=== PATIENT | female | born 1955 | race African-American/Black ===

== ENCOUNTER 2024-09-22 13:39 | Emergency (ER) | payer OTHER ==
[2024-09-22 13:47] VITALS: BP 130/84; PULSE 85; RESP 18; TEMP 98.1; BMI 25.8
[2024-09-22] MEDS ORDERED: ACETAMINOPHEN 500 MG TABLET (FP) ONE (14:13)
[2024-09-22] MEDS ORDERED: IBUPROFEN 600 MG TABLET (FP) PO ONE (14:13)
[2024-09-22] MEDS: ACETAMINOPHEN 500 MG TABLET (FP) PO ONE (14:21)
[2024-09-22] MEDS: IBUPROFEN 600 MG TABLET (FP) PO ONE (14:21)
== END 2024-09-22 14:40 | disposition home or self-care (01) ==
LOC: JERFT 13:39
DX: M25.562 Pain in left knee (principal); M25.462 Effusion, left knee; G89.29 Other chronic pain
CPT/HCPCS: 73562-TC-LT-FY; 99283-25

== ENCOUNTER 2024-11-17 06:02 | Day surgery (SDC) | payer OTHER ==
[2024-11-17 06:50] VITALS: BMI 27.2
[2024-11-17] MEDS ORDERED: VANCOMYCIN 1,000 MG VIAL (RESTRICTED TO ID ONLY) ONE (07:16)
[2024-11-17] MEDS ORDERED: FENTANYL CITRATE/PF 50 MCG/ML VIAL ONE (07:39)
[2024-11-17] MEDS ORDERED: MIDAZOLAM HCL 2 MG/2 ML SINGLE DOSE VIAL ONE ×2 (07:39→08:30)
[2024-11-17] MEDS ORDERED: ROPIVACAINE HCL/PF 100 MG/20 ML VIAL ONE (07:39)
[2024-11-17] MEDS ORDERED: DEXAMETHASONE SOD PHOSPHATE 4 MG/1 ML VIAL ONE (08:02)
[2024-11-17] MEDS ORDERED: TRANEXAMIC ACID 1000 MG/10 ML VIAL ONE ×2 (08:02→09:45)
[2024-11-17] MEDS ORDERED: ceFAZolin SODIUM 1 GM VIAL ONE (08:02)
[2024-11-17] MEDS ORDERED: PROPOFOL 40 ML ONE (08:03)
[2024-11-17] MEDS ORDERED: BUPIVACAINE HCL/PF 0.5% (5MG/ML) 10 ML VIAL ONE (08:09)
[2024-11-17] MEDS ORDERED: ONDANSETRON 4 MG/2 ML VIAL ONE (09:03)
[2024-11-17] MEDS ORDERED: BUPIVICAINE 0.25%/MORPH PF/KETOROLAC - 51ML DISP.SYRINGE IA ONE (09:22)
[2024-11-17] MEDS: VANCOMYCIN 1,000 MG VIAL (RESTRICTED TO ID ONLY) IVPB ONE (09:52)
[2024-11-17] MEDS: KETOROLAC TROMETHAMINE 30 MG/1 ML VIAL IM ONE ×2 (10:03)
[2024-11-17] MEDS: morphine SULFATE/PF 1 MG/2 ML (2cc Syringe - QUVA) IV ONE ×2 (10:03)
[2024-11-17] MEDS: BUPIVACAINE HCL/PF 0.25% (2.5MG/ML) 10 ML VIAL IJ ONE ×2 (10:03)
[2024-11-17] MEDS ORDERED: KETOROLAC TROMETHAMINE 30 MG/1 ML VIAL ONE (10:24)
[2024-11-17] MEDS ORDERED: oxyCODONE HCL 5 MG TABLET PO PRN (10:54)
[2024-11-17] MEDS ORDERED: ONDANSETRON 4 MG/2 ML VIAL IVPUSH PRN (10:56)
[2024-11-17] MEDS: KETOROLAC TROMETHAMINE 30 MG/1 ML VIAL IVPUSH SCH (11:05)
[2024-11-17] MEDS ORDERED: ACETAMINOPHEN INJECTION 100 ML ONE (11:06)
[2024-11-17] MEDS: ACETAMINOPHEN 1000 MG/100 ML BAG IVPB ONE (11:11)
[2024-11-17] MEDS: ACETAMINOPHEN 500 MG TABLET (FP) PO SCH (17:39)
[2024-11-17] MEDS: CEFAZOLIN 2 GM/D5W 2 GRAM/50 ML ML IVPB SCH (17:40)
[2024-11-17] MEDS: SENNOSIDES/DOCUSATE COMBO (SENNA PLUS) TABLET (UD) PO SCH (21:17)
[2024-11-17] MEDS: GABAPENTIN 300 MG CAPSULE PO SCH (21:17)
[2024-11-18] MEDS: PANTOPRAZOLE 40 MG TABLET PO SCH (09:11)
[2024-11-18] MEDS: MULTIVITAMINS (DAILY MVI) TABLET (FP) PO SCH (09:11)
[2024-11-18] MEDS: ASPIRIN COATED 81 MG TABLET.EC PO SCH (09:12)
[2024-11-18 09:15] LABS: HEMATOCRIT 32.6 % (32.4-45.2); HEMOGLOBIN 10.8 G/dL (10.7-15.3); MCH 31.9 pg (25.7-33.7); MCHC 33.1 g/dl (32.0-36.0); MEAN CELL VOLUME 96.4 fl (80-96); MEAN PLT VOLUME 8.9 fl (7.5-11.1); PLATELET COUNT 235.8 10^3/uL (134-434); RBC 3.38 10^6/uL (3.60-5.2); RDW 13.3 % (11.6-15.6); WHITE BLOOD COUNT 5.9 10^3/uL (4.0-10.8)
[2024-11-18] MEDS: ONDANSETRON 4 MG/2 ML VIAL IVPUSH PRN (09:32)
[2024-11-18 09:43] LABS: CALCIUM 9.3 mg/dl (8.5-10.1); CREATININE 0.6 mg/dl (0.6-1.3)
[2024-11-18] MEDS: CEFTRIAXONE 1 GM in DEXTROSE 5%-WATER - 50 ML IVPB SCH (11:19)
[2024-11-18] MEDS: CEFTRIAXONE 1,000 MG in DEXTROSE 5%-WATER - 50 ML IVPB ONE (11:28)
[2024-11-18 12:09] LABS: EPITHELIAL CELLS 0-5 /hpf
[2024-11-18] MEDS: LACTATED RINGERS SOLUTION 1,000 ML IV SCH (14:10)
[2024-11-18] MEDS: oxyCODONE HCL 5 MG TABLET PO PRN (17:34)
[2024-11-18] MEDS: MAG HYDROX/AL HYDROX/SIMETH 30 ML UNIT-DOSE CUP PO PRN (21:39)
[2024-11-19] MEDS: KETOROLAC TROMETHAMINE 30 MG/1 ML VIAL IM ONE (08:12)
[2024-11-19 09:04] LABS: ALBUMIN 3.6 g/dl (3.4-5.0); BILIRUBIN,TOTAL 0.8 mg/dl (0.2-1); CREATININE 0.5 mg/dl (0.6-1.3); POTASSIUM 3.6 mmol/L (3.5-5.1); TOT PROT 5.6 g/dl (6.4-8.2)
[2024-11-19 09:11] LABS: BASO % 0.3 % (0-2.0); EOS % 1.1 % (0-4.5); HEMATOCRIT 31.7 % (32.4-45.2); HEMOGLOBIN 10.8 GM/dL (10.7-15.3); LYMPH % 20.9 % (8-40); MCHC 34.1 g/dl (32.0-36.0); NEUT % 64.7 % (42.8-82.8); PLATELET COUNT 240 10^3/uL (134-434); RBC 3.38 M/mm3 (3.60-5.2); RDW 13.6 % (11.6-15.6); WHITE BLOOD COUNT 6.4 K/mm3 (4.0-10.0)
[2024-11-19 11:09] VITALS: RESP 18
[2024-11-20 10:25] VITALS: BP 137/68; PULSE 78; TEMP 98.4
== END 2024-11-20 14:18 | disposition home or self-care (01) ==
LOC: SUATTDRO 06:02 → FASUSAT 06:02 → FM/S 11:50 → FASUSAT 11-20 14:18
PROC: 8E0Y0CZ Robotic Assisted Procedure of Lower Extremity, Open Approach (ICD-10-PCS; 2024-11-17)
PROC: 0SRD0JA Replacement of Left Knee Joint with Synthetic Substitute, Uncemented, Open Approach (ICD-10-PCS; principal; 2024-11-17 09:01)
DX: M17.12 Unilateral primary osteoarthritis, left knee (principal); I10 Essential (primary) hypertension; E78.5 Hyperlipidemia, unspecified; K21.9 Gastro-esophageal reflux disease without esophagitis
CPT/HCPCS: 20985; 27447; C1776; S2900; 0241U-QW; 36415; 73560-TC-LT-FY; 80048; 80053; 81003; 81015; 85025; 85027; 87086; 88305-TC; 88311-TC; 94760; 97010-GP; 97116-GP; 97162-GP; J0131